=== PATIENT | female | born 2000 | race Caucasian/White ===

== ENCOUNTER 2022-05-31 22:03 | Emergency (ER) | payer OTHER ==
[~2022-05-31] VITALS: Ht 165.1 cm; Wt 67.0 kg
[2022-06-01 00:37] VITALS: BP 132/89
[2022-06-01] MEDS ORDERED: TETANUS-DIPTH-ACEL PERTUSSIS 0.5ML SYR Tdap IM ONE (07:15)
[2022-06-01] MEDS ORDERED: IBUPROFEN 600 MG TAB PO ONE (07:15)
[2022-06-01] MEDS ORDERED: NAPR500T31 PO (07:23)
[2022-06-01] MEDS ORDERED: CEPH-509 PO (07:23)
== END 2022-06-01 07:31 | disposition home or self-care (01) ==
LOC: ER 22:03
DX: S60.112A Contusion of left thumb with damage to nail, initial encounter (principal); Z79.899 Other long term (current) drug therapy; W23.0XXA Caught, crushed, jammed, or pinched between moving objects, initial encounter; Y93.89 Activity, other specified; Y92.89 Other specified places as the place of occurrence of the external cause; Y99.0 Civilian activity done for income or pay
CPT/HCPCS: 73120; 90471; 90715